=== PATIENT | female | born 1940 | race Two or more races ===

== ENCOUNTER → 2018-09-03 | Outpatient (CLI) | payer OTHER ==
[~2018-09-03] MED LIST: ATOR10TA9 PO; CIPR500T3 PO; GLIM4TAB2 PO; METF10002 PO; NPH,100V5 SC; RAMI5CAP57 PO; SULF1TAB23 PO
== END | disposition home or self-care (01) ==
LOC: CLISVCS 11:22
PROVIDERS: ATTEND Family Medicine
DX: Z02.9 Encounter for administrative examinations, unspecified (principal)